=== PATIENT | female | born 1995 | race Two or more races ===

== ENCOUNTER 2025-07-16 02:22 | Emergency (ER) | payer SELFPAY ==
[2025-07-16 02:34] VITALS: BP 129/75; PULSE 108; RESP 18; TEMP 36.8; O2SAT 97
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
[2025-07-16] MEDS: DIPHTH,PERTUSS(ACELL),TET VAC 0.5 ML SYR- ADULT IMi (04:50)
[2025-07-16] MEDS: BACITRACIN OINT 1 GM PACKET TOP (04:52)
== END 2025-07-16 05:08 ==
PROVIDERS: Emergency Provider Emergency Medicine
DX: S00.83XA Contusion of other part of head, initial encounter (principal); V89.2XXA Person injured in unspecified motor-vehicle accident, traffic, initial encounter; Y92.410 Unspecified street and highway as the place of occurrence of the external cause
CPT/HCPCS: 90715; 99281; A9270